=== PATIENT | male | born 1950 | race Caucasian/White ===

== ENCOUNTER 2017-05-02 12:33 | Inpatient (IN) | payer MEDICARE, OTHER ==
--- NOTE | 2017-05-02 14:20 | RAD ---
RIGHT HIP RADIOGRAPHS 2 VIEWS: DATE: 05/02/17. PROVIDED CLINICAL HISTORY: Trauma. FINDINGS: There is a displaced intertrochanteric right proximal femoral fracture with resultant coxa vera. The re is overriding at the fracture site. Femoral acetabular relationship appears normal. Conspicuous stool burden is seen within the rectum. IMPRESSION: Displaced right femoral intertrochanteric fracture. POS: [facility]
--- NOTE | 2017-05-02 14:22 | RAD ---
AP VIEW OF THE PELVIS: INDICATION: History of right hip pain. FINDINGS: Thee is a right hip intertrochanteric fracture with varus alignment. No additional fracture is evide nt. There is a prominent amount of stool within the colon and rectum. IMPRESSION: Right hip intertrochanteric fracture. POS: [facility]
[2017-05-02 14:58] LABS: #Lymphocytes 0.9 thou/uL (1.20-3.40); #Monocytes 0.9 thou/uL (0.11-0.59); #Neutrophils 8.4 thou/uL (1.40-6.50); %Basophils 0.2 % (0.0-1.0); %Eosinophils 0.4 % (0.0-10.0); %Lymphocytes 8.7 % (21.0-51.0); %Neutrophils 81.6 % (42.0-75.0); Hemoglobin 10.8 g/dL (14.0-18.0); Mean Corpuscular Hemoglobin 29.3 pg (27.0-31.0); Mean Corpuscular Volume 88.7 fl (80.0-94.0); Mean Platelet Volume 8.8 fL (7.4-10.4); Platelet Count 159 thou/uL (130-400); RBC Distribution Width 14.4 % (11.5-14.5); White Blood Cell (WBC) Count 10.3 thou/uL (4.8-10.8)
[2017-05-02 15:05] LABS: INR-International Normal Ratio 1.2
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
[2017-05-02 15:22] LABS: ALT (SGPT) 11 U/L (8-55); AST (SGOT) 19 U/L (5-34); Albumin 3.5 g/dL (3.4-4.8); Alkaline Phosphatase 84 U/L (40-150); Anion Gap 14 mmol/L (10-20); BUN (Urea Nitrogen) 54 mg/dL (8.4-25.7); Bilirubin, Total 0.3 mg/dL (0.2-1.2); Calc. Creatinine Clearance 0 mL/min (70-130); Calcium 8.5 mg/dL (7.8-10.44); Carbon Dioxide 20 mmol/L (23-31); Chloride 101 mmol/L (98-107); Estimated GFR-MDRD 24; Globulin 3.9 g/dL (2.4-3.5); Glucose 140 mg/dL (80-115); Potassium 4.5 mmol/L (3.5-5.1); Protein, Total 7.4 g/dL (5.8-8.1); Sodium 130 mmol/L (136-145)
--- NOTE | 2017-05-02 15:24 | RAD ---
AP VIEW OF THE CHEST: INDICATION: Preop. COMPARISON: None. FINDINGS: There is interstitial prominence seen throughout both lungs which may be related to underlying fibrot ic change. No confluent airspace opacity or pleural effusion is evident. Cardiomediastinal silhouet te is normal. No acute osseous abnormality is evident. IMPRESSION: 1. No definite acute cardiopulmonary abnormality. 2. Interstitial prominence seen throughout both lungs may reflect underlying changes of interstitial fibrosis. POS: [facility]
[2017-05-02] MEDS ORDERED: Dextrose 50% Abboject 50 ML SYRINGE SLOW IVP PRN ×2 (15:51→16:11)
[2017-05-02] MEDS ORDERED: Ondansetron HCl/PF 4 MG/2 ML Vial IVP PRN (15:51)
[2017-05-02] MEDS ORDERED: Dextrose 5% in Water 1,000 ML IV PRN ×2 (15:51→16:11)
[2017-05-02] MEDS ORDERED: hydrALAZINE 20 MG/ML VIAL SLOW IVP PRN (15:51)
[2017-05-02] MEDS ORDERED: Sodium Chloride 0.9% 1,000 ML IV SCH ×2 (16:00→16:16)
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
[2017-05-02 18:21] VITALS: BMI 20.8
[2017-05-02] MEDS ORDERED: CEFAZOLIN/Water 2 GM/20 ML SYRINGE SLOW IVP SCH (18:30)
[2017-05-02] MEDS: Acetaminophen 1,000 MG in Premix Bag 1 BAG IVPB SCH (18:42)
[2017-05-02] MEDS: Famotidine/PF 20 mg/2ml Vial SLOW IVP SCH (22:08)
[2017-05-03] MEDS: Acetaminophen 1,000 MG in Premix Bag 1 BAG IVPB SCH ×4 (00:05→17:39)
[2017-05-03 04:22] LABS: #Basophils 0.1 thou/uL (0.0-0.2); #Eosinphils 0.4 thou/uL (0.0-0.7); #Lymphocytes 1.2 thou/uL (1.20-3.40); #Monocytes 1.3 thou/uL (0.11-0.59); #Neutrophils 8.6 thou/uL (1.40-6.50); %Basophils 0.4 % (0.0-1.0); %Eosinophils 3.6 % (0.0-10.0); %Lymphocytes 10.5 % (21.0-51.0); %Monocytes 10.9 % (0.0-10.0); %Neutrophils 74.5 % (42.0-75.0); Hemoglobin 10.6 g/dL (14.0-18.0); Mean Corpuscular HGB CONC 32.9 g/dL (32.0-36.0); Mean Corpuscular Hemoglobin 29.2 pg (27.0-31.0); Mean Corpuscular Volume 88.6 fl (80.0-94.0); Mean Platelet Volume 8.8 fL (7.4-10.4); Platelet Count 159 thou/uL (130-400); RBC Distribution Width 14.3 % (11.5-14.5); Red Blood Cell (RBC) Count 3.65 mill/uL (4.70-6.10); White Blood Cell (WBC) Count 11.5 thou/uL (4.8-10.8)
[2017-05-03 04:34] LABS: Anion Gap 13 mmol/L (10-20); BUN (Urea Nitrogen) 52 mg/dL (8.4-25.7); Calc. Creatinine Clearance 33 mL/min (70-130); Calcium 8.4 mg/dL (7.8-10.44); Carbon Dioxide 21 mmol/L (23-31); Chloride 106 mmol/L (98-107); Estimated GFR-MDRD 28; Sodium 136 mmol/L (136-145)
[2017-05-03 04:42] LABS: Glucose 54 mg/dL (80-115)
[2017-05-03] MEDS: Dextrose 5 %-0.45 % NaCl 1,000 ML IV SCH ×2 (05:08→12:24)
--- NOTE | 2017-05-03 06:51 | PRG ---
DATE OF SERVICE: 05/02/2017 SUBJECTIVE: The patient is a 66-year-old male who exhibits dementia memory care facility, had a fall, was found to have a right intertrochanteric fracture. OBJECTIVE: Vital signs have been reviewed and stable, otherwise stated in the HPI and stable. Physi ana lilia exam was unchanged from history and physical. ASSESSMENT AND PLAN: Continue care as noted in the daily progress note. Continue to monitor over to [place]. DISCHARGE DISPOSITION: Pending.
[2017-05-03] MEDS: Famotidine/PF 20 mg/2ml Vial SLOW IVP SCH ×2 (07:50→22:04)
[2017-05-03] MEDS ORDERED: CEFAZOLIN/Water 2 GM/20 ML SYRINGE ONE (07:53)
[2017-05-03] MEDS ORDERED: Ondansetron HCl/PF 4 MG/2 ML Vial IVP PRN (10:53)
--- NOTE | 2017-05-03 11:26 | OP ---
DATE OF PROCEDURE: 05/03/2017 OPERATION: Right femur intramedullary nail. PREOPERATIVE DIAGNOSIS: Right intertrochanteric femur fracture. POSTOPERATIVE DIAGNOSIS: Right intertrochanteric femur fracture. COMPLICATIONS: None. ESTIMATED BLOOD LOSS: Minimal. SURGEON: Ronnie Scherer M.D. ANESTHESIA: General. MATERIAL MAN: Kaylan Shi PA-C INDICATIONS: Mr. Peralta is a 66-year-old male, who has fallen. He fractured his right proximal femur . He was indicated for closed reduction with intramedullary nail fixation. Risks were reviewed in d etail. He elected to proceed with the operation. DESCRIPTION OF PROCEDURE: Mr. Peralta was identified in the preoperative holding area. His right lowe r extremity was prepped and draped in sterile fashion. We began the procedure with intraoperative x- ray evaluation. We pulled traction and rotation on the femur reducing the femur fracture. At this p oint, we made a small incision proximal to the greater trochanter. We then inserted a guidewire thro ugh the tip of the trochanter. We over reamed the guidewire. We then inserted our 12 mm Synthes amy l. We placed this appropriately using x-rays. We then placed a guidewire in the center position of the femoral head. We impacted a helical blade over this guidewire. A distal cross lock screw was pl aced. At this point, we irrigated our wounds and closed appropriately. The patient was taken to the recovery room in good condition without complication. IMPLANTS: A Synthes short trochanteric nail size 12 mm with helical blade.
--- NOTE | 2017-05-03 12:14 | RAD ---
TWO VIEWS RIGHT HIP: 05/03/2017 HISTORY: Right hip fracture, status post ORIF. COMPARISON: None. FINDINGS: Two intraoperative images are provided. The images demonstrate a short intramedullary sumit within the proximal right femur, with a distal inte rlocking screw and a nail traversing the femoral neck. IMPRESSION: Open reduction and internal fixation, as above. POS: [facility]
[2017-05-03 12:45] LABS: Bilirubin Negative (Negative); Blood, Urine Large (Negative); Clarity CLOUDY (Clear); Glucose, Urine (Dipstick) Negative (Negative); Leukocyte Large (Negative); Nitrite Negative (Negative); Protein, Urine (Dipstick) 100 mg/dL (Neg-Trace); Specific Gravity, Urine 1.019 (1.002-1.036); Urobilinogen 0.2 mg/dL (0.2-1.0); pH, Urine 5.5 (5.0-9.0)
[2017-05-03 12:59] LABS: Bilirubin Negative (Negative); Blood, Urine Large (Negative); Clarity TURBID (Clear); Glucose, Urine (Dipstick) 100 mg/dL (Negative); Leukocyte Large (Negative); Nitrite Negative (Negative); Protein, Urine (Dipstick) 100 mg/dL (Neg-Trace); Specific Gravity, Urine 1.016 (1.002-1.036); Urobilinogen 0.2 mg/dL (0.2-1.0)
[2017-05-03 13:04] LABS: Bacteria/HPF Rare-Few HPF (None Seen); Hyaline Casts/LPF 4-6 HYALINE CAST LPF (0-3 Hyaline); Pathc Cast-AUWi Flag 1.03 (0-2.49); Squamous Epithelial 0-3 HPF (0-3)
[2017-05-03 13:12] LABS: Yeast-AUWi Flag 205.1 (0-25.0)
[2017-05-03 13:21] LABS: Renal Epithelial 0-3 HPF (0-3); Yeast-All Forms None Seen HPF (None Seen)
[2017-05-03] MEDS ORDERED: Lidocaine 1% PF 5 ML VIAL ONE (13:57)
[2017-05-03] MEDS ORDERED: Glycopyrrolate 0.2 MG/ML 5 ML SYRINGE ONE (13:57)
[2017-05-03] MEDS ORDERED: PHENYLEPHRINE-NS 100 MCG/ML 10 ML SYRINGE ONE (13:57)
[2017-05-03] MEDS ORDERED: Propofol 200 MG/20 ML VIAL ONE (13:57)
[2017-05-03] MEDS ORDERED: ePHEDrine/0.9% NaCl/PF SYRINGE 50 mg/10 ml ONE (13:57)
--- NOTE | 2017-05-03 16:47 | PRG ---
DATE OF SERVICE: 05/03/2017 ATTENDING PHYSICIAN: Tim Awad DO SUBJECTIVE: The patient is a 66-year-old male with history of severe dementia who lives at [facility]. He was brought to the [facility] ED yesterday and found to have a right intertrocha nteric hip fracture after suffering a ground level fall. The patient was taken to the operating room this morning and is now stable in the surgical floor. He vocalizes no complaints. OBJECTIVE: VITAL SIGNS: BP 105/64, pulse 93, temperature 97.9, respirations 14, O2 sat 97% on room air. GENERAL APPEARANCE: The patient is an elderly adult male who appears older than his stated age. He is in no acute distress. He is not grossly oriented. HEENT: Normocephalic, atraumatic. LUNGS: Clear to auscultation bilaterally with normal effort. CARDIOVASCULAR: Regular rate and rhythm. Normal S1 and S2. EXTREMITIES: He is neurovascularly intact x4. His dressing on his right hip is clean and dry. NEUROLOGIC: He is alert and oriented x1. His GCS is 15. LABORATORY DATA: WBC is 11.5, hemoglobin 10.6, hematocrit 32.3, platelets 159. Chemistry: Sodium 1 36, potassium 4.0, chloride 106, bicarbonate 21, BUN 52, creatinine 2.39, estimated GFR 28, glucose 5 4. ASSESSMENT: 1. Status post ground level fall. 2. Right intertrochanteric hip fracture, status post intramedullary nail. 3. Alzheimer's dementia. 4. History of mood or other psychiatric disorder. 5. History of diabetes mellitus. PLAN: 1. The patient is stable in the surgical floor. We will continue to try to optimize his pain contro l and give supportive care measures as needed. 2. Continue gastritis prophylaxis and pulmonary toileting as ordered. 3. Rehab consult has been placed, although it is not clear if this patient will be appropriate for r ehabilitation given his cognitive dysfunction. He will likely discharge back to his memory care [facility] on Saturday. This patient was seen and examined along with Dr. Tim Awad on rounds, who agrees with the assess ment and plan.
[2017-05-03] MEDS: CEFAZOLIN/Water 2 GM/20 ML SYRINGE SLOW IVP SCH (17:39)
--- NOTE | 2017-05-04 00:01 | PRG ---
DATE OF SERVICE: 05/03/2017 SUBJECTIVE: No acute events, patient is a 66-year-old male status post ORIF of the hip. He is posto p day #0. The patient is doing well. No complaints at this time. OBJECTIVE: VITAL SIGNS: Vital signs have been reviewed, otherwise has been stable. Physical exam is unchanged otherwise stated in daily progress note. ASSESSMENT AND PLAN: Continue care as noted in daily progress note. Continue to monitor. Discharge disposition is pending. PT and OT as well.
[2017-05-04] MEDS: CEFAZOLIN/Water 2 GM/20 ML SYRINGE SLOW IVP SCH (01:20)
[2017-05-04] MEDS: Dextrose 5 %-0.45 % NaCl 1,000 ML IV SCH ×2 (01:22→21:44)
[2017-05-04 07:54] LABS: Mean Corpuscular HGB CONC 33.5 g/dL (32.0-36.0); Mean Corpuscular Hemoglobin 29.1 pg (27.0-31.0); Mean Corpuscular Volume 86.8 fl (80.0-94.0); Mean Platelet Volume 8.8 fL (7.4-10.4); Platelet Count 152 thou/uL (130-400); RBC Distribution Width 14.3 % (11.5-14.5); Red Blood Cell (RBC) Count 3.45 mill/uL (4.70-6.10)
[2017-05-04] MEDS: Famotidine/PF 20 mg/2ml Vial SLOW IVP SCH ×2 (08:38→20:58)
--- NOTE | 2017-05-04 15:11 | PRG ---
DATE OF SERVICE: 05/04/2017 ATTENDING PHYSICIAN: Tim Awad DO SUBJECTIVE: The patient is a 66-year-old male with history of severe dementia, who is postoperative day #1 status post open reduction and internal fixation right intertrochanteric hip fracture. He was stable on the surgical floor overnight. He was seen this morning sitting up in the chair. He has eaten breakfast. The pain has been well controlled. OBJECTIVE: VITAL SIGNS: Temperature 98.5, pulse 98, respirations 16, O2 sat 100% on room air, and blood pressure 131/65. CONSTITUTIONAL: Elderly male sitting up in the chair, in no acute distress. HEENT: Atraumatic, normocephalic. PULMONARY: Bilateral breath sounds clear. No respiratory distress. CARDIOVASCULAR: Regular rate and rhythm. Heart sounds normal. EXTREMITIES: Neurovascularly intact x4. Right lateral hip surgical dressing is in place, clean, dry and intact. NEUROLOGIC: GCS is 14. Oriented to name and place. ASSESSMENT: 1. Status post ground level fall. 2. Right intertrochanteric hip fracture. 3. Status post open reduction and internal fixation right intertrochanteric hip fracture. 4. Alzheimer dementia, present on admission. 5. History of diabetes, present on admission. PLAN: 1. Continue mobilizing with physical and occupational therapy. 2. Restart home medications. 3. Antibiotics per Orthopedic Service. 4. Lovenox for DVT prophylaxis. 5. Change regular diet to 2000 calorie ADA diet. 6. Case management following for discharge planning. Anticipate patient will discharge back to his previous living facility. The patient was seen and examined with Dr. Awad, who agrees with the assessment and plan. DIANA
[2017-05-04] MEDS: Acetaminophen 500 MG TAB PO PRN (15:18)
[2017-05-04] MEDS: Benztropine 1 MG TAB PO SCH (20:58)
[2017-05-04] MEDS: Gabapentin 300 MG CAP PO SCH (20:58)
[2017-05-04] MEDS: Aripiprazole 15 MG TAB PO SCH (20:58)
[2017-05-04] MEDS: Enoxaparin Sodium 40 MG/0.4 ML SYRINGE SC SCH (20:59)
[2017-05-05] MEDS: Acetaminophen 500 MG TAB PO PRN ×2 (06:45→22:06)
[2017-05-05] MEDS: Gabapentin 300 MG CAP PO SCH ×2 (10:36→22:04)
[2017-05-05] MEDS: Tamsulosin HCl 0.4 MG CAP PO SCH (10:36)
[2017-05-05] MEDS: Famotidine/PF 20 mg/2ml Vial SLOW IVP SCH ×2 (10:36→22:04)
[2017-05-05] MEDS: DULoxetine 30 MG CAP PO SCH (10:36)
[2017-05-05] MEDS: Escitalopram Oxalate 20 mg Tablet PO SCH (10:36)
[2017-05-05] MEDS: Dextrose 5 %-0.45 % NaCl 1,000 ML IV SCH (10:45)
[2017-05-05] MEDS: Insulin Regular 300 UNITS/3 ML VIAL SC PRN ×2 (11:27→22:11)
--- NOTE | 2017-05-05 11:38 | PRG ---
DATE OF SERVICE: 05/05/2017 ATTENDING PHYSICIAN: Dr. Tim Awad. SUBJECTIVE: The patient is a 66-year-old male with history of severe dementia, who is postoperative day #2, status post ORIF right intertrochanteric hip fracture. He has been stable in the surgical fl oor. He has been mobilizing with physical and occupational therapy. He is tolerating meals and pain has been well controlled. OBJECTIVE: VITAL SIGNS: Temperature 98.9, pulse 89, respirations 16, O2 sat 99% on room air, blood pressure 111 /70. GENERAL: Elderly male sitting up in bed in no acute distress. HEENT: Atraumatic, normocephalic. PULMONARY: Bilateral breath sounds clear. No respiratory distress. CARDIOVASCULAR: Regular rate and rhythm. Heart sounds normal. EXTREMITIES: Neurovascularly intact x4. Right lateral hip surgical dressing in place, clean, dry an d intact. NEUROLOGIC: GCS of 14. Oriented to name and place. ASSESSMENT: 1. Status post ground level fall. 2. Right intertrochanteric hip fracture. 3. Status post open reduction and internal fixation of right intertrochanteric hip fracture. 4. Alzheimer's dementia, present on admission. 5. History of diabetes, present on admission. PLAN: 1. Continue mobilizing with physical and occupational therapy. 2. Discontinue Mills catheter. 3. Lovenox for DVT prophylaxis. 4. Pepcid for PUD prophylaxis. 5. Continue 2000 calorie ADA diet. 6. Continue mobilizing with physical and occupational therapy. Case management was consulted for erica live planning. Anticipate patient will discharge back to his previous living facility. I have di scussed with case management. Patient was reviewed with Dr. Awad, attending trauma surgeon, who agrees with the assessment and bhavani n.
[2017-05-05] MEDS: Benztropine 1 MG TAB PO SCH (22:04)
[2017-05-05] MEDS: Enoxaparin Sodium 40 MG/0.4 ML SYRINGE SC SCH (22:04)
[2017-05-05] MEDS: Aripiprazole 15 MG TAB PO SCH (22:04)
--- NOTE | 2017-05-06 00:39 | PRG ---
DATE OF SERVICE: 05/05/2017 SUBJECTIVE: No acute events ongoing. The patient has no complaints at this time. He is postop day #2. OBJECTIVE: VITAL SIGNS: Reviewed, otherwise stable. Physical exam is unchanged, otherwise stated in the daily progress note. ASSESSMENT AND PLAN: Continue care as detailed in the daily progress note. Continue to monitor. [facility] live disposition is pending.
[2017-05-06] MEDS: Escitalopram Oxalate 20 mg Tablet PO SCH (09:59)
[2017-05-06] MEDS: Tamsulosin HCl 0.4 MG CAP PO SCH (09:59)
[2017-05-06] MEDS: Famotidine/PF 20 mg/2ml Vial SLOW IVP SCH ×2 (09:59→21:23)
[2017-05-06] MEDS: DULoxetine 30 MG CAP PO SCH (09:59)
[2017-05-06] MEDS: Acetaminophen 500 MG TAB PO PRN (09:59)
[2017-05-06] MEDS: Gabapentin 300 MG CAP PO SCH ×2 (09:59→21:23)
[2017-05-06] MEDS: Insulin Regular 300 UNITS/3 ML VIAL SC PRN (12:17)
--- NOTE | 2017-05-06 19:49 | PRG ---
DATE OF SERVICE: 05/06/2017 ATTENDING PHYSICIAN: Dr. Tim Awad. SUBJECTIVE: This is a 66-year-old male with a history of severe dementia, who is postoperative day # 3 status post open reduction internal fixation right intertrochanteric hip fracture. He has been sta ble in the surgical floor. He has been mobilizing with physical and occupational therapy. He is mervin erating a diet and pain has been well controlled. OBJECTIVE: VITAL SIGNS: Temperature 98.2, pulse 89, respirations 18, O2 sat 99% on room air, blood pressure 100 /58. CONSTITUTIONAL: Elderly male, lying in bed, in no acute distress, appropriately interactive. PULMONARY: Bilateral breath sounds clear to auscultation. CARDIOVASCULAR: Regular rate and rhythm. Heart sounds normal. ABDOMEN: Soft, nontender, nondistended. EXTREMITIES: Neurovascularly intact x4. Cap refill brisk. Moves all extremities well. NEUROLOGIC: GCS 14. Oriented to name and place. ASSESSMENT: 1. Status post ground level fall. 2. Right intertrochanteric hip fracture. 3. Status post ORIF right intertrochanteric hip fracture. 4. Alzheimer's dementia, present on admission. 5. History of diabetes, present on admission. PLAN: 1. Continue mobilizing with physical and occupational therapy. 2. Lovenox for DVT prophylaxis. 3. Pepcid for PUD prophylaxis. 4. Continue 2000 calorie ADA diet. 5. The patient's original plan was to discharge back to the [facility] care area ; however, it does not appear that that is going to be an appropriate setting at this time, and the patient will not be accepted to that facility. Case management is following and we are working on arrangements to [facility] facility possibly in the [facility]. The patient was seen and examined with Dr. Awad who agrees with the assessment and plan.
[2017-05-06] MEDS ORDERED: Hydrocortisone Sod Succ/PF 100 mg/2 ml Vial IVP SCH (21:00)
[2017-05-06 21:11] LABS: #Eosinphils 0.3 thou/uL (0.0-0.7); #Lymphocytes 2.1 thou/uL (1.20-3.40); #Monocytes 0.9 thou/uL (0.11-0.59); #Neutrophils 7.5 thou/uL (1.40-6.50); %Basophils 0.4 % (0.0-1.0); %Lymphocytes 19.5 % (21.0-51.0); %Monocytes 8.1 % (0.0-10.0); Hemoglobin 9.3 g/dL (14.0-18.0); Mean Corpuscular HGB CONC 32.2 g/dL (32.0-36.0); Mean Corpuscular Hemoglobin 27.9 pg (27.0-31.0); Mean Corpuscular Volume 86.6 fl (80.0-94.0); Mean Platelet Volume 8.9 fL (7.4-10.4); Platelet Count 187 thou/uL (130-400); RBC Distribution Width 14.2 % (11.5-14.5); Red Blood Cell (RBC) Count 3.34 mill/uL (4.70-6.10); White Blood Cell (WBC) Count 10.8 thou/uL (4.8-10.8)
[2017-05-06] MEDS: Enoxaparin Sodium 40 MG/0.4 ML SYRINGE SC SCH (21:23)
[2017-05-06] MEDS: Aripiprazole 15 MG TAB PO SCH (21:23)
[2017-05-06] MEDS: Benztropine 1 MG TAB PO SCH (21:24)
[2017-05-06 21:32] LABS: Anion Gap 11 mmol/L (10-20); BUN (Urea Nitrogen) 41 mg/dL (8.4-25.7); Calc. Creatinine Clearance 43 mL/min (70-130); Calcium 8.4 mg/dL (7.8-10.44); Carbon Dioxide 22 mmol/L (23-31); Chloride 106 mmol/L (98-107); Estimated GFR-MDRD 37; Glucose 178 mg/dL (80-115); Magnesium 1.8 mg/dL (1.6-2.6); Potassium 4.3 mmol/L (3.5-5.1); Sodium 135 mmol/L (136-145)
[2017-05-06] MEDS ORDERED: Potassium Phosphate 15 MMOL in Sodium Chloride 0.9% 250 ML 250 ML IVPB SCH (23:00)
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
[2017-05-07] MEDS: Hydrocortisone Sod Succ/PF 100 mg/2 ml Vial IVP SCH ×3 (05:24→21:09)
[2017-05-07 05:45] LABS: Anion Gap 12 mmol/L (10-20); BUN (Urea Nitrogen) 42 mg/dL (8.4-25.7); Calc. Creatinine Clearance 44 mL/min (70-130); Calcium 8.4 mg/dL (7.8-10.44); Carbon Dioxide 20 mmol/L (23-31); Chloride 107 mmol/L (98-107); Estimated GFR-MDRD 38; Glucose 197 mg/dL (80-115); Magnesium 1.6 mg/dL (1.6-2.6); Phosphorus 3.8 mg/dL (2.3-4.7); Potassium 4.1 mmol/L (3.5-5.1); Sodium 135 mmol/L (136-145)
[2017-05-07] MEDS ORDERED: Magnesium 2 GM/NS 0.9% 100 ML 2 GM in Premix Bag 1 BAG IVPB SCH (07:00)
[2017-05-07] MEDS: Gabapentin 300 MG CAP PO SCH ×2 (09:11→20:36)
[2017-05-07] MEDS: DULoxetine 30 MG CAP PO SCH (09:12)
[2017-05-07] MEDS: Famotidine/PF 20 mg/2ml Vial SLOW IVP SCH ×2 (09:12→20:37)
[2017-05-07] MEDS: Escitalopram Oxalate 20 mg Tablet PO SCH (09:12)
[2017-05-07] MEDS: Tamsulosin HCl 0.4 MG CAP PO SCH (09:12)
[2017-05-07] MEDS: Insulin Regular 300 UNITS/3 ML VIAL SC PRN ×2 (11:34→20:46)
[2017-05-07] MEDS: Acetaminophen 500 MG TAB PO PRN (15:05)
[2017-05-07] MEDS: Benztropine 1 MG TAB PO SCH (20:36)
[2017-05-07] MEDS: Enoxaparin Sodium 40 MG/0.4 ML SYRINGE SC SCH (20:37)
[2017-05-07] MEDS: Aripiprazole 15 MG TAB PO SCH (20:37)
[2017-05-08] MEDS: Hydrocortisone Sod Succ/PF 100 mg/2 ml Vial IVP SCH (05:59)
[2017-05-08] MEDS: Gabapentin 300 MG CAP PO SCH (09:26)
[2017-05-08] MEDS: Escitalopram Oxalate 20 mg Tablet PO SCH (09:26)
[2017-05-08] MEDS: Tamsulosin HCl 0.4 MG CAP PO SCH (09:26)
[2017-05-08] MEDS: Famotidine/PF 20 mg/2ml Vial SLOW IVP SCH (09:27)
[2017-05-08] MEDS: DULoxetine 30 MG CAP PO SCH (09:27)
[2017-05-08] MEDS: Insulin Regular 300 UNITS/3 ML VIAL SC PRN (11:53)
[2017-05-08 12:38] VITALS: BP 122/72; TEMP 97.8
--- NOTE | 2017-05-08 17:46 | DIS ---
DATE OF ADMISSION: 05/02/2017 DATE OF DISCHARGE: 05/08/2017 ADMITTING PHYSICIAN: Tim Awad D.O. DISCHARGING PHYSICIAN: Tim Awad D.O. CHIEF COMPLAINT: Right hip fracture. HOSPITAL COURSE: The patient is a 66-year-old male with history of severe dementia who lives at [facility]. He reportedly had a fall at his facility and was brought by EMS to [facility] ED where he was evaluated and found to have a right intertrochanteric hip fracture. The pat ient underwent intramedullary nail fixation on 05/03/2017. He tolerated the procedure well and remai anne marie stable in the surgical floor while discharge placement was pending. The patient was discharged t o a shelter facility on 05/08/2017 in stable condition. ADMISSION DIAGNOSIS: Right intertrochanteric hip fracture. DISCHARGE DIAGNOSIS: Right intertrochanteric hip fracture, status post right femur intramedullary na il. DISCHARGE MEDICATIONS: The patient was discharged to a shelter facility with all of his inne tient medications: Please see medication list in the EMR for details. ACTIVITY RESTRICTIONS: The patient has orthopedic limitations including weightbearing as tolerated a nd hip precautions. NURSING INSTRUCTIONS: The patient may discharge on a regular diet. THERAPY INSTRUCTIONS: The patient to receive occupational, physical therapy at the shelter acility. FOLLOWUP INSTRUCTIONS: The patient is to follow up with Dr. Ronnie Scherer in 14 days. The p atient is also to follow up with his primary care provider in 7 days. Although no formal followup ev aluation was scheduled, Dr. Tim Awad remains available for followup as needed. This patient was seen and examined along with Dr. Tim Awad on rounds who agrees with this discharge plan.
[2017-05-08] MEDS ORDERED: Hydrocortisone Sod Succ/PF 100 mg/2 ml Vial IVP SCH (21:00)
== END 2017-05-08 16:17 | DRG 481 ==
LOC: ERS 12:33 → EDBD 12:33 → SURG A 15:40
PROVIDERS: ADMIT Surgery; ATTEND Surgery
PROC: 0QS606Z Reposition Right Upper Femur with Intramedullary Internal Fixation Device, Open Approach (ICD-10-PCS; principal; 2017-05-03)
DX: S72.141A Displaced intertrochanteric fracture of right femur, initial encounter for closed fracture (principal); N17.9 Acute kidney failure, unspecified; E11.42 Type 2 diabetes mellitus with diabetic polyneuropathy; G30.9 Alzheimer's disease, unspecified; F02.81 Dementia in other diseases classified elsewhere, unspecified severity, with behavioral disturbance; F20.9 Schizophrenia, unspecified; W18.30XA Fall on same level, unspecified, initial encounter; Y92.129 Unspecified place in nursing home as the place of occurrence of the external cause; Z79.4 Long term (current) use of insulin; N40.0 Benign prostatic hyperplasia without lower urinary tract symptoms; K59.00 Constipation, unspecified
CPT/HCPCS: 36415; 36416; 71045; 72170; 76001; 80048; 80053; 81003; 82533; 83735; 84100; 85025; 85027; 85610; 85730; 86850; 86900; 86901; 93005; C1713; C1769; G0390; G8978-GP-CM; G8979-GP-CK; G8987-GO-CM; G8988-GO-CK; J0131; J1650; J1720; J1815; J2001; J2704; J3475; J7050; S0028